=== PATIENT | female | born 1975 | race Caucasian/White ===

== ENCOUNTER 2016-08-30 08:09 | Emergency (ER) | payer OTHER ==
[2016-08-30 08:14] VITALS: BP 158/95
--- NOTE | 2016-08-30 09:40 | PROVIDER DOCUMENTATION ---
HPI-EENT General - General Chief Complaint: Cold Symptoms Stated Complaint: cold sx/fever Time Seen by Provider: 08/30/16 09:12 Source: patient Allergies/Adverse Reactions: Patient Allergies Allergy/AdvReac Type Severity Reaction Status Date / Time Penicillins Allergy Severe NAUSEA/VOMI Verified 08/30/16 09:38 TING latex Allergy Intermediate ITCHING Verified 08/30/16 09:38 meperidine HCl * Allergy Intermediate ITCHING Verified 08/30/16 09:38 [From Demerol] nalbuphine HCl * Allergy Intermediate ITCHING Verified 08/30/16 09:38 [From Nubain] duloxetine HCl * Allergy Mild HEADACHE Verified 08/30/16 09:38 [From Cymbalta] amphetamine aspartate * Allergy Unknown Verified 08/30/16 09:38 [From Adderall] amphetamine sulfate * Allergy Unknown Verified 08/30/16 09:38 [From Adderall] dextroamphetamine saccharate Allergy Unknown Verified 08/30/16 09:38 * [From Adderall] dextroamphetamine sulfate * Allergy Unknown Verified 08/30/16 09:38 [From Adderall] Benzodiazepines AdvReac Unknown Verified 08/30/16 09:38 hydrocodone AdvReac FATIGUE Verified 08/30/16 09:38 Home Medications: Sumatriptan Succinate [Imitrex] 100 mg PO PRN PRN 05/01/12 Topiramate [Topamax] 200 mg PO BID 06/02/14 Ranitidine HCl [Zantac] 150 mg PO BID 09/14/14 Divalproex E.r. [Depakote ER] 1,250 mg PO TID 05/03/15 Promethazine [Phenergan] 25 mg PO Q4H PRN PRN 05/03/15 Lansoprazole [Prevacid] 15 mg PO HS 08/30/16 - History of Present Illness-EENT General Nature of Presenting Problem: 40 y/o WF c/o sinus congestion and cough x 1 week, with fevers yesterday and this morning up to 101 F. Denies production to cough. denies sob or wheezing, no chest pain. Ear and throat are also hurting. No pre-arrival treatments. Sinusitis is recurrent for her. Denies other symptoms at this time. Review of Systems - Adult - REVIEW OF SYSTEMS - ADULT Constitutional: reports: see HPI, fever, fatique. denies: chills Eyes: reports: no symptoms reported. denies: blurred vision, double vision, eye pain Ears, Nose, Mouth & Throat: reports: see HPI, ear pain, sinus problem, throat pain Cardiovascular: reports: no symptoms reported. denies: chest pain, palpitations Respiratory: reports: see HPI, cough. denies: shortness of breath, wheezing Gastrointestinal: reports: no symptoms reported. denies: abdominal pain, diarrhea, nausea, vomiting Genitourinary: reports: no symptoms reported. denies: dysuria, discharge, frequency Musculoskeletal: reports: no symptoms reported. denies: bone pain, back pain, muscle aches Integumentary: reports: no symptoms reported. denies: rash Neurological: reports: see HPI, headache/migraines. denies: dizziness/vertigo Psychiatric: reports: no symptoms reported Endocrine: reports: no symptoms reported Hematologic/Lymphatic: reports: no symptoms reported Allergic/Immunologic: reports: no symptoms reported All Other Systems: Reviewed and Negative Past History - Adult - PAST MEDICAL HISTORY-ADULT Review of Records: reports: Old Records Reviewed, Nursing Assessment Review, Medications Reviewed, Social history reviewed & non-contributory. Major Childhood Illnesses: reports: denies history Cardiovascular: reports: HTN Respiratory: reports: denies history Gastrointestinal: reports: denies history Obstetrical/Gynecological: reports: denies history Genitourinary: reports: denies history Musculoskeletal: reports: chronic pain, intervertebral disc disease Neurological: reports: headaches/migraines, Seizures/Epilepsy Psychiatric: reports: depression, ptsd Endocrine/Immune: reports: denies history Other Conditions: reports: denies history - PRIOR SURGERIES/PROCEDURES Surgical/Procedure History: reports: cholecystectomy, hysterectomy, tonsillectomy - IMMUNIZATION STATUS Childhood Immunizations: See Nurse Assessment Flu Vaccine: See Nurse Assessment - FAMILY HISTORY Family History: reviewed, not pertinent Physical Exam- EENT - Physical Exam EENT Initial Vital Signs Reviewed: Yes General Appearance: appears well, alert, no apparent distress Eye Exam: bilateral eye: normal inspection, PERRL, EOMI Ear Exam: bilateral ear: auricle normal, canal normal, TM normal Nasal Exam: normal inspection, sinus tenderness (maxillary) Throat Exam: normal mouth inspection, pharynx normal. negative: pharynx tenderness, tonsillar exudate, tonsillar swelling Neck: non-tender, full range of motion, supple, normal inspection. negative: lymphadenopathy Respiratory: chest non-tender, lungs clear, normal breath sounds, no pleuratic chest pain, no respiratory distress, no accessory muscle use. negative: respiratory distress, decreased breath sounds, accessory muscle use, crackles, rales, rhonchi, wheezing Cardiovascular: normal peripheral pulses, regular rate, rhythm, no edema, no gallop, no JVD, no murmur Extremity: normal gait Integumentary: normal color, normal turgor, warm/dry Neurologic: grossly normal, no motor/sensory deficits Psych/Mental Status: AL, normal mood/affect, normal thought content, normal thought process, oriented x 3 Progress - PLAN OF CARE/RESULTS Progress/Plan/Lab Results: Vital Signs Temp Pulse Resp BP Pulse Ox 08/30/16 08:11 98.7 F 115 H 20 158/95 100 Penicillins Allergy (Severe, Verified 08/30/16 09:38) NAUSEA/VOMITING Vomiting, facial swelling latex Allergy (Intermediate, Verified 08/30/16 09:38) ITCHING blisters with direct contact meperidine HCl * [From Demerol] Allergy (Intermediate, Verified 08/30/16 09:38) ITCHING states it "sets her on fire" nalbuphine HCl * [From Nubain] Allergy (Intermediate, Verified 08/30/16 09:38) ITCHING duloxetine HCl * [From Cymbalta] Allergy (Mild, Verified 08/30/16 09:38) HEADACHE severe headaches amphetamine aspartate * [From Adderall] Allergy (Verified 08/30/16 09:38) Unknown amphetamine sulfate * [From Adderall] Allergy (Verified 08/30/16 09:38) Unknown dextroamphetamine saccharate * [From Adderall] Allergy (Verified 08/30/16 09:38) Unknown dextroamphetamine sulfate * [From Adderall] Allergy (Verified 08/30/16 09:38) Unknown Benzodiazepines Adverse Reaction (Verified 08/30/16 09:38) Unknown hydrocodone Adverse Reaction (Verified 08/30/16 09:38) FATIGUE Sumatriptan Succinate [Imitrex] 100 mg PO PRN PRN 05/01/12 Topiramate [Topamax] 200 mg PO BID 06/02/14 Ranitidine HCl [Zantac] 150 mg PO BID 09/14/14 Divalproex E.r. [Depakote ER] 1,250 mg PO TID 05/03/15 Promethazine [Phenergan] 25 mg PO Q4H PRN PRN 05/03/15 Azithromycin [Zithromax Z-Marlon] 250 mg PO DIRECTED #1 pkg 08/30/16 Lansoprazole [Prevacid] 15 mg PO HS 08/30/16 Prednisone [Deltasone] 20 mg PO DIRECTED #12 tablet 08/30/16 Orders Category Date Time Status CHEST-2 VIEWS [RAD] Stat Exams 08/30/16 08:15 Taken DIRECT STREP Stat Lab 08/30/16 08:14 Completed INFLUENZA SCREEN A/B Stat Lab 08/30/16 08:14 Completed - XRAY 1 XRAY: Bilateral XRAY Study: Chest Impression: Normal (NAD ER prelim Jose) Departure - Departure Time of Disposition Order: 09:34 DIAGNOSIS: Sinusitis, acute Qualifiers: Sinusitis location: maxillary Recurrence: recurrent Qualified Code(s): J01.01 - Acute recurrent maxillary sinusitis Disposition: HOME 01 Certified Medical Emergency: Emergent Condition: Stable Additional Instructions: Tylenol and motrin for pain and fever ED Follow Up Instructions: You have been treated by a care provider in the Emergency Department. These instructions are being provided to you so you can have an understanding of how to care for yourself upon discharge. Upon discharge from the Emergency Department, you are responsible for making arrangements for follow-up care by a physician of your choice. Take all prescribed medications as directed. Return to the Emergency Department immediately for any new or worsening symptoms. You may call the Physician Referral phone number at [phone] to obtain a list of Physicians who are taking new patients. Prescriptions: Prednisone [Deltasone] 20 mg PO DIRECTED #12 tablet Azithromycin [Zithromax Z-Marlon] 250 mg PO DIRECTED #1 pkg Referrals: Daniel Acevedo MD [Primary Care Provider] - Attestation - Physician/ Mid-level Attestation Patient care was provided by Mid-level provider (MED ADMIN/PA):: Yes Mid-level provider:: Patti Garcia Mid-level documentation review:: The Mid-level provider documentation, treatment plan and medical decision making was reviewed by the physician who agrees with all treatment and medical decision making by the MLP.
--- NOTE | 2016-08-30 10:33 | Diag Imaging Result Document ---
PROCEDURE NAME: CHEST-2 VIEWS - 08/30/2016 PA AND LATERAL RADIOGRAPH OF THE CHEST: COMPARISON: 04/17/2013. FINDINGS: The lungs are grossly clear. There is no discrete pleural fluid collection or evidence of pneumothorax. The cardiomediastinal silhouette and upper airway are grossly unremarkable. IMPRESSION: No evidence of acute chest pathology.
== END 2016-08-30 10:15 | disposition home or self-care (01) ==
LOC: ED 08:09
DX: J01.01 Acute recurrent maxillary sinusitis (principal); R09.81 Nasal congestion; R05 Cough; R50.9 Fever, unspecified; R53.83 Other fatigue; R07.0 Pain in throat; R51 Headache; I10 Essential (primary) hypertension; Z79.899 Other long term (current) drug therapy; H92.09 Otalgia, unspecified ear; M48.9 Spondylopathy, unspecified; G89.29 Other chronic pain; R56.9 Unspecified convulsions
CPT/HCPCS: 71020; 87081; 87430; 87804; 99283